=== PATIENT | male | born 1975 | race Caucasian/White ===

== ENCOUNTER 2017-02-06 19:32 | Inpatient (IN) | payer OTHER ==
--- NOTE | 2017-02-06 20:12 | EDPHY ---
HPI/HX/ROS/PE/MDM Narrative: CHIEF COMPLAINT: Abscess HISTORY OF PRESENT ILLNESS: The patient is a 41-year-old male presenting with an abscess to the left inner thigh. The patient states the abscess has been present for quite sometime. Recently the abscess became more inflamed. It feels hot to the touch. After biking yesterday he noticed drainage from the abscess. It has since continued to drain and feels more painful. The patient has felt febrile intermittently. This morning he had an episode of emesis. He denies recent sickness. No chest pain or shortness of breath. The patient notes that he urinates frequently. REVIEW OF SYSTEMS: Aside from elements discussed in the HPI, a comprehensive 10-point review of systems was reviewed and is negative. PAST MEDICAL HISTORY: Denies. SOCIAL HISTORY: . Cigarette smoker. Daily alcohol consumption. Denies IV drug use. VITAL SIGNS: Reviewed by me GENERAL: Well-developed, well-nourished, resting comfortably in no respiratory distress. HEENT: Atraumatic. Eyes: No icterus, no injection. Mouth: moist mucous membranes. No erythema or lesions. Neck: supple with no adenopathy. LUNGS: Clear to auscultation bilaterally, no wheezes, rhonchi or rales. CARDIAC: Regular rate and rhythm, no rubs, murmurs or gallops. ABDOMEN: Soft, nontender, nondistended, bowel sounds normal. BACK: No CVA tenderness. EXTREMITIES: 3cm by 2cm abscess to the inner aspect of the left thigh with erythema extending along the medial thigh. Enlarged, tender adenopathy in the left groin. Streaks of erythema extending on to the suprapubic abdomen. Scrotum is erythematous. Not swollen. NEURO: Alert and oriented, grossly nonfocal. SKIN: Warm and dry, no rash. PSYCHIATRIC: Normal mentation, no agitation. Portions of this note were transcribed by a medical technologist chemistry. I personally performed a history, physical exam, medical decision making, and confirmed accuracy of information the transcribed note. ED Course: The patient presents with abscess to inner aspect of left thigh. On exam patient has 3cm by 2cm abscess to the inner aspect of the left thigh with erythema extending to the knee and lower abdomen. Patient has swollen inguinal lymph node. Patient received IV pain medication. Plan to drain the abscess. Lab work ordered. I started patient on IV antibiotics, plan to admit. Procedure: Incision and Drainage abscess. The patient's abscess was located on the inner aspect of the left thigh. Risks, benefits, alternatives discussed with the patient and consent obtained. The area was prepped and draped in sterile fashion. The patient received Bupivacaine with epinephrine for local anesthesia. The abscess was incised with a #11 blade and purulent drainage was expressed. The wound was packed. The patient tolerated the procedure well. The procedure was performed by myself. Patient's course was discussed with Dr. Tyrone Mackey. Patient will be admitted to the medicine service for further observation of the significant cellulitis associated with his abscess. He received dose of vancomycin in the emergency department. MDM: Differential diagnoses for the patient's symptom complex was considered including but not limited to abscess, cellulitis, bacteremia, [place] gangrene , lymphangitis. - Data Points Laboratory Results: Laboratory Results 02/06/17 20:58 02/06/17 20:58 02/06/17 02/06/17 02/06/17 20:58 20:58 20:58 WBC 12.78 10^3/uL H 10^3/uL (3.80-9.50) RBC 4.76 10^6/uL 10^6/uL (4.40-6.38) Hgb 15.2 g/dL g/dL (13.7-17.5) Hct 43.4 % % (40.0-51.0) MCV 91.2 fL fL (81.5-99.8) MCH 31.9 pg pg (27.9-34.1) MCHC 35.0 g/dL g/dL (32.4-36.7) RDW 12.0 % % (11.5-15.2) Plt Count 202 10^3/uL 10^3/uL (150-400) MPV 10.4 fL fL (8.7-11.7) Neut % (Auto) 70.0 % % (39.3-74.2) Lymph % (Auto) 18.2 % % (15.0-45.0) [place] % (Auto) 9.5 % % (4.5-13.0) Eos % (Auto) 1.4 % % (0.6-7.6) Baso % (Auto) 0.3 % % (0.3-1.7) Nucleat RBC Rel Count 0.0 % % (0.0-0.2) Absolute Neuts (auto) 8.94 10^3/uL H 10^3/uL (1.70-6.50) Absolute Lymphs (auto) 2.33 10^3/uL 10^3/uL (1.00-3.00) Absolute Monos (auto) 1.21 10^3/uL H 10^3/uL (0.30-0.80) Absolute Eos (auto) 0.18 10^3/uL 10^3/uL (0.03-0.40) Absolute Basos (auto) 0.04 10^3/uL 10^3/uL (0.02-0.10) Absolute Nucleated RBC 0.00 10^3/uL 10^3/uL (0-0.01) Immature Gran % 0.6 % % (0.0-1.1) Immature Gran # 0.08 10^3/uL 10^3/uL (0.00-0.10) Sodium 140 mEq/L mEq/L (134-144) Potassium 4.3 mEq/L mEq/L (3.5-5.2) Chloride 101 mEq/L mEq/L (97-110) Carbon Dioxide 25 mEq/l mEq/l (22-31) Anion Gap 14 mEq/L mEq/L (8-16) BUN 10 mg/dL mg/dL (7-23) Creatinine 0.9 mg/dL mg/dL (0.7-1.3) Estimated GFR > 60 Glucose 89 mg/dL mg/dL (70-100) Calcium 9.9 mg/dL mg/dL (8.5-10.4) Urine Color COLORLESS Urine Appearance CLEAR Urine pH 6.0 (5.0-7.5) Ur Specific [place] 1.001 L (1.002-1.030) Urine Protein NEGATIVE (NEGATIVE) Urine Ketones NEGATIVE (NEGATIVE) Urine Blood NEGATIVE (NEGATIVE) Urine Nitrate NEGATIVE (NEGATIVE) Urine Bilirubin NEGATIVE (NEGATIVE) Urine Urobilinogen NEGATIVE EU EU (0.2-1.0) Ur Leukocyte Esterase NEGATIVE (NEGATIVE) Urine RBC 1-3 /hpf /hpf (0-3) Urine WBC NONE SEEN /hpf /hpf (0-3) Ur Epithelial Cells NONE SEEN /lpf /lpf (NONE-1+) Urine Glucose NEGATIVE (NEGATIVE) Medications Given: Discontinued Medications Fentanyl (Sublimaze) 75 mcg IVP EDNOW ONE Stop: 02/06/17 20:32 Last Admin: 02/06/17 21:01 Dose: 75 mcg Sodium Chloride (Ns) 1,000 mls @ 0 mls/hr IV ONCE ONE PRN Reason: Wide Open Stop: 02/06/17 20:32 Last Admin: 02/06/17 21:01 Dose: 1,000 mls General Time Seen by Provider: 02/06/17 19:54 Initial Vital Signs: Initial Vital Signs Temperature (C) 37.3 C 02/06/17 19:36 Heart Rate 91 02/06/17 19:36 Respiratory Rate 16 02/06/17 19:36 Blood Pressure 146/88 H 02/06/17 19:36 O2 Sat (%) 94 02/06/17 19:36 O2 Delivery Mode Room Air Allergies/Adverse Reactions: No Known Allergies Allergy (Unverified 02/06/17 19:35) Home Medications: Medication Instructions Recorded NK [No Known Home Meds] 02/06/17 Departure - Departure Disposition: [facility] Acute Clinical Impression: Abscess Cellulitis Qualifiers: Site of cellulitis: extremity Site of cellulitis of extremity: lower extremity Laterality: left Qualified Code(s): L03.116 - Cellulitis of left lower limb Condition: Fair Report Scribed for: Lula Estes Report Scribed by: Nilda Benitez Date of Report: 02/06/17 Time of Report: 20:12
[2017-02-06] MEDS ORDERED: NS 1,000 ML IV ONE (20:31)
[2017-02-06] MEDS ORDERED: fentaNYL 100 MCG/2 ML INJ IVP ONE (20:31)
[2017-02-06 21:06] LABS: % IMMATURE GRANULYOCYTES 0.6 % (0.0-1.1); ABSOLUTE IMMATURE GRANULOCYTES 0.08 10^3/uL (0.00-0.10); ADD DIFF? NO; ADD MORPH? NO; ADD SCAN? NO; ATYPICAL LYMPHOCYTE FLAG 20 (0-99); FRAGMENT RBC FLAG 0 (0-99); HEMATOCRIT 43.4 % (40.0-51.0); HEMOGLOBIN 15.2 g/dL (13.7-17.5); LEFT SHIFT FLG 0 (0-99); LIPEMIA HEMOLYSIS FLAG 90 (0-99); MEAN CELL HEMOGLOBIN 31.9 pg (27.9-34.1); MEAN CELL VOLUME 91.2 fL (81.5-99.8); MEAN PLATELET VOLUME 10.4 fL (8.7-11.7); PLATELET CLUMPS FLAG 0 (0-99); PLATELET COUNT 202 10^3/uL (150-400); RED BLOOD CELL COUNT 4.76 10^6/uL (4.40-6.38)
[2017-02-06 21:09] LABS: COLOR COLORLESS; LEUKOCYTE ESTERASE,URINE NEGATIVE (NEGATIVE); NITRITE,URINE NEGATIVE (NEGATIVE)
[2017-02-06 21:11] LABS: WBC,URINE NONE SEEN /hpf (0-3)
[2017-02-06] MEDS ORDERED: VANCOMYCIN HCL/NORMAL SALINE 250 ML IV ONE (21:25)
[2017-02-06 21:26] LABS: ANION GAP 14 mEq/L (8-16); CALCIUM 9.9 mg/dL (8.5-10.4); CARBON DIOXIDE 25 mEq/l (22-31); CHLORIDE 101 mEq/L (97-110); CREATININE 0.9 mg/dL (0.7-1.3); GLOMERULAR FILTRATION RATE > 60; GLUCOSE 89 mg/dL (70-100); POTASSIUM 4.3 mEq/L (3.5-5.2); SODIUM 140 mEq/L (134-144)
[2017-02-06] MEDS ORDERED: ONDANSETRON DISINTEGRATING 4 MG TAB PO PRN (22:37)
[2017-02-06] MEDS ORDERED: ONDANSETRON 4 MG/2 ML VIAL IVP PRN (22:37)
[2017-02-06] MEDS ORDERED: LORazepam 1 MG TAB PO PRN (22:39)
[2017-02-06] MEDS ORDERED: NS 1,000 ML IV SCH (22:45)
--- NOTE | 2017-02-06 22:46 | PDGENHP ---
History and Physical - Chief Complaint groin abscess - History of Present Illness Patient is a 41 year old male with no significant pmh who presents to the ED with complaint of painful L groin abscess. Patient states he has had a small bump present at the site of previous shaving for about 1 month; nonirritating, nonerythematous. This past weekend he was doing a lot of heavy lifting, which seemed to have irritated the area significantly. The bump increased in size, became red and tender to touch. Then two days ago when trying to get on his motorcycle he felt the bump burst and it began draining bloody purulence. This continued for the following days, today he noticed erythema extending into his groin and down his inner thigh, so he decided to come to the ED for further evaluation. He denies any associated fever, chills, headache, nausea, abdominal pain, cough. On arrival to the ED patient was afebrile and hemodynamically stable. Labs revealed mild leukocytosis, normal bmp. On exam he had a draining L groin/upper thigh abscess, which was lanced and drained by the ED physician. The wound fluid was sent for culture and he was initiated on IV antibiotics. Given the appearance of surrounding erythema, he is being admitted to the hospitalist service for further evaluation. History Information - Allergies/Home Medication List Allergies/Adverse Reactions: No Known Allergies Allergy (Unverified 02/06/17 19:35) Home Medications: NK [No Known Home Meds] 02/06/17 [Last Taken Unknown] I have personally reviewed and updated: family history, medical history, social history, surgical history - Past Medical History Additional medical history: denies - Surgical History Additional surgical history: denies - Family History Positive for: non-pertinent - Social History Smoking Status: Current every day smoker (1 pack per day) Alcohol Use: Occasionally (1-2 beers/nightly) Drug Use: None Additional social history: 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 Review of Systems ROS: 10pt was reviewed & negative except for what was stated in HPI & below Physical Exam Temp Pulse Resp BP Pulse Ox 36.7 C 70 16 130/74 H 94 02/06/17 22:29 02/06/17 22:29 02/06/17 22:29 02/06/17 22:29 02/06/17 22:29 Constitutional: no apparent distress, appears nourished, not in pain Eyes: PERRL, anicteric sclera, EOMI Ears, Nose, Mouth, Throat: moist mucous membranes, hearing normal, ears appear normal, no oral mucosal ulcers Cardiovascular: regular rate and rhythym, no murmur, rub, or gallop, pulses symmetric bilaterally, No JVD, No edema Peripheral Pulses: 2+: dorsalis-pedis (R), dorsalis-pedis (L) Respiratory: no respiratory distress, no rales or rhonchi, clear to auscultation Gastrointestinal: normoactive bowel sounds, soft, non-tender abdomen, no palpable masses, No guarding, No rebound Genitourinary: no bladder fullness, no bladder tenderness Skin: other (packed open abscess on medial upper thigh with surrounding erythema extending along posterior thigh and into L groin) Musculoskeletal: full muscle strength, no muscle tenderness, normal joint ROM, no joint effusions Neurologic: AAOx3, sensation intact bilaterally, CN II-XII Intact, No weakness, No numbness, No facial droop Psychiatric: interacting appropriately, not anxious, not encephalopathic, thought process linear Lab Data & Imaging Review 02/06/17 20:58 02/06/17 20:58 WBC 12.78 10^3/uL (3.80-9.50) H 02/06/17 20:58 RBC 4.76 10^6/uL (4.40-6.38) 02/06/17 20:58 Hgb 15.2 g/dL (13.7-17.5) 02/06/17 20:58 Hct 43.4 % (40.0-51.0) 02/06/17 20:58 MCV 91.2 fL (81.5-99.8) 02/06/17 20:58 MCH 31.9 pg (27.9-34.1) 02/06/17 20:58 MCHC 35.0 g/dL (32.4-36.7) 02/06/17 20:58 RDW 12.0 % (11.5-15.2) 02/06/17 20:58 Plt Count 202 10^3/uL (150-400) 02/06/17 20:58 MPV 10.4 fL (8.7-11.7) 02/06/17 20:58 Neut % (Auto) 70.0 % (39.3-74.2) 02/06/17 20:58 Lymph % (Auto) 18.2 % (15.0-45.0) 02/06/17 20:58 [place] % (Auto) 9.5 % (4.5-13.0) 02/06/17 20:58 Eos % (Auto) 1.4 % (0.6-7.6) 02/06/17 20:58 Baso % (Auto) 0.3 % (0.3-1.7) 02/06/17 20:58 Nucleat RBC Rel Count 0.0 % (0.0-0.2) 02/06/17 20:58 Absolute Neuts (auto) 8.94 10^3/uL (1.70-6.50) H 02/06/17 20:58 Absolute Lymphs (auto) 2.33 10^3/uL (1.00-3.00) 02/06/17 20:58 Absolute Monos (auto) 1.21 10^3/uL (0.30-0.80) H 02/06/17 20:58 Absolute Eos (auto) 0.18 10^3/uL (0.03-0.40) 02/06/17 20:58 Absolute Basos (auto) 0.04 10^3/uL (0.02-0.10) 02/06/17 20:58 Absolute Nucleated RBC 0.00 10^3/uL (0-0.01) 02/06/17 20:58 Immature Gran % 0.6 % (0.0-1.1) 02/06/17 20:58 Immature Gran # 0.08 10^3/uL (0.00-0.10) 02/06/17 20:58 Sodium 140 mEq/L (134-144) 02/06/17 20:58 Potassium 4.3 mEq/L (3.5-5.2) 02/06/17 20:58 Chloride 101 mEq/L (97-110) 02/06/17 20:58 Carbon Dioxide 25 mEq/l (22-31) 02/06/17 20:58 Anion Gap 14 mEq/L (8-16) 02/06/17 20:58 BUN 10 mg/dL (7-23) 02/06/17 20:58 Creatinine 0.9 mg/dL (0.7-1.3) 02/06/17 20:58 Estimated GFR > 60 02/06/17 20:58 Glucose 89 mg/dL (70-100) 02/06/17 20:58 Calcium 9.9 mg/dL (8.5-10.4) 02/06/17 20:58 Urine Color COLORLESS 02/06/17 20:58 Urine Appearance CLEAR 02/06/17 20:58 Urine pH 6.0 (5.0-7.5) 02/06/17 20:58 Ur Specific [place] 1.001 (1.002-1.030) L 02/06/17 20:58 Urine Protein NEGATIVE (NEGATIVE) 02/06/17 20:58 Urine Ketones NEGATIVE (NEGATIVE) 02/06/17 20:58 Urine Blood NEGATIVE (NEGATIVE) 02/06/17 20:58 Urine Nitrate NEGATIVE (NEGATIVE) 02/06/17 20:58 Urine Bilirubin NEGATIVE (NEGATIVE) 02/06/17 20:58 Urine Urobilinogen NEGATIVE EU (0.2-1.0) 02/06/17 20:58 Ur Leukocyte Esterase NEGATIVE (NEGATIVE) 02/06/17 20:58 Urine RBC 1-3 /hpf (0-3) 02/06/17 20:58 Urine WBC NONE SEEN /hpf (0-3) 02/06/17 20:58 Ur Epithelial Cells NONE SEEN /lpf (NONE-1+) 02/06/17 20:58 Urine Glucose NEGATIVE (NEGATIVE) 02/06/17 20:58 Assessment & Plan Assessment: Patient is a 41 year old male with no significant pmh who presents to the ED with complaint of L thigh abscess. ED evaluation reveals partially draining abscess with surrounding cellulitis. Abscess was I+D, packed and he was admitted for continued IV antibiotics. Plan: # cellulitis with draining abscess Patient has mild leukocytosis, but no other evidence of SIRS/sepsis on presentation. Abscess has been drained, with packing in place. There is surrounding erythema, consistent with a mild cellulitis. Wound culture sent, pending. Will continue IV vanc overnight, IV fluid hydration and likely transition to po antibiotics in AM. # dispo: admit to ob
[2017-02-06] MEDS: oxyCODONE IR 5 MG TAB PO PRN (23:31)
[2017-02-06] MEDS: KETOROLAC 15 MG/1 ML SDV IVP SCH (23:31)
[2017-02-06] MEDS: ACETAMINOPHEN 325 MG TAB PO PRN (23:32)
[2017-02-06] MEDS: NICOTINE 14 MG/24 HR PATCH TD SCH (23:39)
[2017-02-07 04:56] LABS: % IMMATURE GRANULYOCYTES 0.4 % (0.0-1.1); ABSOLUTE IMMATURE GRANULOCYTES 0.04 10^3/uL (0.00-0.10); ADD DIFF? NO; ADD MORPH? NO; ADD SCAN? NO; ATYPICAL LYMPHOCYTE FLAG 20 (0-99); FRAGMENT RBC FLAG 0 (0-99); HEMATOCRIT 41.2 % (40.0-51.0); HEMOGLOBIN 14.1 g/dL (13.7-17.5); LEFT SHIFT FLG 0 (0-99); LIPEMIA HEMOLYSIS FLAG 90 (0-99); MEAN CELL HEMOGLOBIN 31.7 pg (27.9-34.1); MEAN CELL HEMOGLOBIN CONCENTR. 34.2 g/dL (32.4-36.7); MEAN CELL VOLUME 92.6 fL (81.5-99.8); MEAN PLATELET VOLUME 10.9 fL (8.7-11.7); PLATELET CLUMPS FLAG 0 (0-99); PLATELET COUNT 191 10^3/uL (150-400); RED BLOOD CELL COUNT 4.45 10^6/uL (4.40-6.38); RED CELL DISTRIBUTION WIDTH 12.2 % (11.5-15.2)
[2017-02-07] MEDS: oxyCODONE IR 5 MG TAB PO PRN ×5 (05:07→23:27)
[2017-02-07] MEDS: KETOROLAC 15 MG/1 ML SDV IVP SCH ×2 (05:07→12:16)
[2017-02-07 05:09] LABS: ANION GAP 5 mEq/L (8-16); CALCIUM 8.9 mg/dL (8.5-10.4); CARBON DIOXIDE 28 mEq/l (22-31); CHLORIDE 107 mEq/L (97-110); CREATININE 0.8 mg/dL (0.7-1.3); GLOMERULAR FILTRATION RATE > 60; GLUCOSE 90 mg/dL (70-100); POTASSIUM 4.5 mEq/L (3.5-5.2); SODIUM 140 mEq/L (134-144)
[2017-02-07] MEDS: NICOTINE 14 MG/24 HR PATCH TD SCH (09:36)
--- NOTE | 2017-02-07 11:49 | HOSPPROG ---
Hospitalist Progress Note Assessment/Plan: Patient is a 41 year old male with no significant pmh who presents to the ED with complaint of L thigh abscess. he is s/p I & D in the ER with packing. Today is my first encounter with the patient/chart reviewed. # cellulitis with draining abscess gram stain pending was given a dose of vancomycin last night will place on vanco bid and ask Dr Carias to evaluate bump from shaving/ he squeezed it, became worse still draining/ warm, red, + lymphadenopathy #Leukocytosis due to the above #Nicotine dependence: patch #Plan: Patient will need another midnight stay/ requiring IV abx/ will reassess his left groin in the morning to see if it will require further drainage Subjective: True said his left groin is tender. Objective: Vital Signs Temp Pulse Resp BP Pulse Ox 36.7 C 69 18 118/77 94 02/07/17 11:46 02/07/17 11:46 02/07/17 11:46 02/07/17 11:46 02/07/17 11:46 Laboratory Results 02/07/17 04:37 02/07/17 04:37 02/06/17 02/07/17 02/08/17 05:59 05:59 05:59 Intake Total 2250 Output Total 120 200 Balance 2130 -200 - Physical Exam Constitutional: no apparent distress, appears nourished Eyes: PERRL Ears, Nose, Mouth, Throat: hearing normal Respiratory: no respiratory distress Skin: other (left groin warm with some lymphadenopathy/ has a dressing in place / small amount of purulent drainage) Neurologic: AAOx3 Psychiatric: interacting appropriately ICD10 Worksheet Patient Problems: Problems Problem Status Onset Abscess Acute Cellulitis Acute
[2017-02-07] MEDS ORDERED: VANCOMYCIN 1.25 GM in D5W 250 ML IV SCH (12:00)
[2017-02-07] MEDS: IBUPROFEN 200 MG TAB PO PRN ×2 (12:19→20:10)
--- NOTE | 2017-02-07 16:02 | GCON ---
[f rep st] CONSULTATION INFECTIOUS DISEASES CONSULTATION. DATE OF CONSULTATION: 02/07/2017 REFERRING PHYSICIAN: Belem Brown NP REASON FOR CONSULTATION: Left groin abscess. HISTORY OF PRESENT ILLNESS: Patient is a 41-year-old male, without significant past medical history , who I am asked to see in consultation for a left groin abscess. Patient describes shaving his ing uinal region several months ago, after which he developed a small bump. He equated this with an ing rown hair. This did not bother him until several days ago, after which he developed increasing swel ling, erythema and tenderness in this region. This began after he had been lifting boxes during a m ove. 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 He also had erythema surrounding this region, and extending into the thigh. He did have some pain more medially towards the scrotal region. He did not have any involvement of the scrotum or penis. Yesterday he felt like his erythema was worsening , and therefore he came to the emergency department for further evaluation. His fiancee felt like h e had a fever subjectively. He did not have any chills. He did have some associated nausea. No dy suria or penile discharge. No prior history of skin and soft tissue infection. Evaluation in the e mergency department showed a mild leukocytosis. Clinical evaluation revealed a 3 x 2 cm abscess in the inguinal region. This was incised and drained with Gram stain showing rare gram-positive cocci. Patient has been started empirically on vancomycin. Post drainage he feels like the erythema has receded significantly. He does have some residual pain around the incision and drainage site, which is now packed. Given the above findings, I am now asked to assist in his ongoing management. PAST MEDICAL HISTORY: Unremarkable. PAST SURGICAL HISTORY: Unremarkable. CURRENT MEDICATIONS: Vancomycin 1.25 g IV q.12 hours, ibuprofen as needed, morphine as needed, Omar Derm CQ 14 mg patch daily, Oxy IR as needed. ALLERGIES: No known drug allergies. SOCIAL HISTORY: Patient smokes 1 pack per day. He drinks 2 beers daily. No drug use history. 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 No ill contacts with skin and soft tissue infection. FAMILY HISTORY: Mother with diabetes. REVIEW OF SYSTEMS: Outside of that noted in the HPI, remainder of 10-system review is unremarkable. PHYSICAL EXAMINATION: VITAL SIGNS: Temperature 36.7, heart rate 69, respiratory rate 18, blood pre ssure 118/77, oxygen saturation of 94% on room air. GENERAL: Patient is well-nourished, well-devel oped, in no acute distress. He appears nontoxic. HEENT: There is no scleral icterus, conjunctival injection, or conjunctival petechiae. Oropharynx is clear without lesions. Mucous membranes are m oist. Dentition is in fair repair. There is no nasal discharge. There is no tenderness over the f rontal, maxillary, or mastoid area. NECK: Supple without lymphadenopathy or palpable thyromegaly. CHEST: Clear to auscultation bilaterally without adventitious sounds. The respiratory effort is n ormal. CARDIOVASCULAR: Regular rate and rhythm without murmurs, gallops, or rubs. ABDOMEN: Soft, nontender, nondistended. There is no palpable organomegaly, bowel sounds are present. : The le ft groin shows an abscess cavity which has been drained with packing in place; there is a small amou nt of purulence expressed; there is induration superiorly without focal fluctuance; there is erythem a surrounding the incision and drainage site, including a portion of the thigh, but does not extend medially to the scrotum or penis. Additionally, this does not extend to the perianal region. MUSCU LOSKELETAL: There is no cyanosis, clubbing, or edema, other than as outlined in exam. SKIN: Se e exam. There is no stigmata of endocarditis. SKIN: Warm and dry to touch. LYMPHATICS: There are no cervical or supraclavicular nodes palpable. There is no lymphangitis in the left thigh. NE UROLOGIC: Patient is alert and interacts appropriately with the examiner. Cranial nerves 2-12 are grossly intact. Sensation is grossly intact. Muscle tone and bulk are normal. LABORATORY DATA: White blood cell count 9.4, hematocrit 41.2, platelets 191, neutrophils 56% lympho cytes 30%, serum creatinine 0.8. Urinalysis shows 1 to 3 red blood cells with no white blood cells being seen. Gram stain from the abscess cavity shows 1+ white blood cells and rare gram-positive co cci with culture currently pending. IMPRESSION: Left groin abscess with associated cellulitis status post incision and drainage: Ora rutledge improved post incision and drainage, although has some residual induration present. Most like ly this will be staphylococcal in etiology with community-acquired methicillin-resistant Staphylococ cus aureus consideration. Streptococci also of consideration. Given the residual induration and pr oximity to the genitals I think the patient should remain hospitalized for next 24 hours with contin ued receipt of vancomycin. He is agreeable to this plan. We will reassess in the a.m. to ensure no further incision and drainage required for resolution. RECOMMENDATIONS: 1. Vancomycin 1 g IV q.8 hours. 2. Warm compresses to left inguinal region. 3. Followup culture data as available. 4. Reassess in a.m., with further decision making based on clinical course. Thank you for this consultation. We will continue to follow patient with you. /[id number]/MODL
[2017-02-07] MEDS: VANCOMYCIN HCL/NORMAL SALINE 250 ML IV SCH (20:01)
[2017-02-08] MEDS: VANCOMYCIN HCL/NORMAL SALINE 250 ML IV SCH ×2 (04:13→11:44)
[2017-02-08] MEDS: ACETAMINOPHEN 325 MG TAB PO PRN (06:56)
[2017-02-08] MEDS: oxyCODONE IR 5 MG TAB PO PRN (06:57)
[2017-02-08 07:51] VITALS: BP 119/72; PULSE 62; RESP 14; TEMP 98.6; O2SAT 93
[2017-02-08] MEDS: NICOTINE 14 MG/24 HR PATCH TD SCH (09:45)
--- NOTE | 2017-02-08 10:46 | HOSPPROG ---
Hospitalist Progress Note Assessment/Plan: Patient is a 41 year old male with no significant pmh who presents to the ED with complaint of L thigh abscess. he is s/p I & D in the ER with packing. # left groin abscess vanco gram stain shows no growth doxycycline #Leukocytosis due to the above #Nicotine dependence: patch #Plan: dc home/ further f/u with Dr Carias Subjective: Heraclio is feeling much better today. Objective: Vital Signs Temp Pulse Resp BP Pulse Ox 37 C 62 14 119/72 93 02/08/17 07:50 02/08/17 07:50 02/08/17 07:50 02/08/17 07:50 02/08/17 07:50 02/07/17 02/08/17 02/09/17 05:59 05:59 05:59 Intake Total 2750 Output Total 1150 Balance 1600 - Physical Exam Constitutional: no apparent distress, appears nourished, not in pain Eyes: PERRL Ears, Nose, Mouth, Throat: hearing normal Respiratory: no respiratory distress Skin: other (left groin with less redness, less swelling/no drainage) Musculoskeletal: full muscle strength Neurologic: AAOx3 Psychiatric: interacting appropriately ICD10 Worksheet Patient Problems: Problems Problem Status Onset Abscess Acute Cellulitis Acute
[2017-02-08 11:16] LABS: ANION GAP 6 mEq/L (8-16); CALCIUM 9.1 mg/dL (8.5-10.4); CARBON DIOXIDE 29 mEq/l (22-31); CHLORIDE 102 mEq/L (97-110); CREATININE 0.7 mg/dL (0.7-1.3); GLOMERULAR FILTRATION RATE > 60; GLUCOSE 86 mg/dL (70-100); POTASSIUM 4.6 mEq/L (3.5-5.2); SODIUM 137 mEq/L (134-144)
--- NOTE | 2017-02-08 12:09 | GDS ---
[f rep st] DISCHARGE SUMMARY DISCHARGE DIAGNOSES: 1. Left groin abscess. 2. Leukocytosis. 3. Nicotine dependence. CONSULTATIONS DURING STAY: Dr. Favian Carias. Briefly, the patient is a 41-year-old male who came to the emergency room with a left groin abscess. It developed in his inguinal region area several months ago in which he developed a small bump secondary to an ingrown hair. The left groin area developed increased swelling, erythema. He started to have more pain that was starting to extend to the scrotal region. He was seen in the emergency room and it was incised and drained. His Gram stain did not show any growth. He was treated with vancomycin empirically. He is markedly improved today, he will be discharged on doxycycline. HOSPITAL COURSE PER PROBLEM: 1. Left groin abscess, was treated with vancomycin, will be discharged on doxycycline. He will further follow up with Dr. Favian Carias. The nurse will show his girlfriend how to pack the dressing to help with healing. 2. Leukocytosis due to this. 3. Nicotine dependence. Both Dr. Carias and myself encouraged the patient to abstain from smoking. PENDING LABS AND TESTS: None. CONDITION AT DISCHARGE: Stable. VITAL SIGNS: Blood pressure is 119/72, O2 sats on room air are 93%, respiratory rate is 14, pulse is 62, temperature is 37.3 Celsius. DISCHARGE INSTRUCTIONS: 1. To follow up with Dr. Carias; an appointment has been arranged. 2. If he develops any worsening redness or swelling or erythema to his left groin area to return to the ER. 3. To stay out of the sun while on doxycycline; it can cause sunburn. /[id number]/MODL MTDD
--- NOTE | 2017-02-08 14:02 | PCMIDPN ---
Assessment/Plan: Assessment/Plan: * Left groin abscess status post incision and drainage: Cultures are no growth to date. Cellulitis has resolved. Overall abscesses markedly improved with some residual induration medially but no fluctuance. Will transition to oral doxycycline twice daily. Continue warm moist compresses. Will have follow-up in my office on Thursday for repeat assessment. Recommend that patient avoid shaving in inguinal region. * Tobacco abuse: Counseled regarding smoking cessation. 02/08/17 13:59 Subjective: Feels much better with decreased pain in inguinal region. Objective: Vital Signs Temp Pulse Resp BP Pulse Ox 37 C 62 14 119/72 93 02/08/17 07:50 02/08/17 07:50 02/08/17 07:50 02/08/17 07:50 02/08/17 07:50 Laboratory Results 02/08/17 10:17 02/07/17 02/08/17 02/09/17 05:59 05:59 05:59 Intake Total 2750 Output Total 1150 Balance 1600 Vancomycin # 2 Abscess cultures no growth - Physical Exam General Appearance: alert, no apparent distress Extremities: inflammation (Left groin abscess with induration at margins and medial to abscess cavity with associated tenderness; cellulitis resolved; minimal amount of purulence when packing removed) Male Genitalia: other (No penile or scrotal erythema/edema) Lymphatic: other (No lymphangitis left thigh) ICD10 Worksheet Patient Problems: Problems Problem Status Onset Abscess Acute Cellulitis Acute
== END 2017-02-08 13:41 | disposition home or self-care (01) | DRG 603 ==
LOC: F3N 22:45 → OBSVTOIN 02-07 15:49
PROVIDERS: ADMIT Internal Medicine; ATTEND Internal Medicine
PROC: 0Y963ZZ Drainage of Left Inguinal Region, Percutaneous Approach (ICD-10-PCS; principal; 2017-02-07)
DX: L02.214 Cutaneous abscess of groin (principal); L03.314 Cellulitis of groin; F17.210 Nicotine dependence, cigarettes, uncomplicated
CPT/HCPCS: 96365; G0378; J1885; J3010; J3370